=== PATIENT | female | born 2000 | race American Indian/Alaskan Native ===

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

== ENCOUNTER 2020-07-04 23:57 | Inpatient (IN) | payer MEDICAID ==
[2020-07-05] MEDS ORDERED: MINERAL OIL 30 ML ORAL LIQD PO PRN (00:55)
[2020-07-05] MEDS ORDERED: LIDOCAINE (2%) 20 MG/1 ML VIAL 20 ML MDV INFILTRATI ONE ×2 (00:55→07:23)
[2020-07-05] MEDS ORDERED: ePHEDrine SULFATE 50 MG/1 ML INJ IV PRN ×2 (00:55→22:25)
[2020-07-05] MEDS ORDERED: TERBUTALINE 1 MG/1 ML INJ SUB-Q PRN (00:55)
[2020-07-05] MEDS ORDERED: OXYTOCIN DRIP 30 UNITS/500 ML BAG IV SCH ×2 (01:00)
[2020-07-05] MEDS ORDERED: LACTATED RINGERS 1,000 ML IV SCH (01:00)
[2020-07-05 02:01] LABS: Hematocrit 31.1 % (30.3-42.9); Hemoglobin 10.4 gm/dl (10.1-14.3); Mean Corpuscular HGB Conc 34 % (30-34); Mean Corpuscular Volume 90 fl (79-97); Platelet Count 163 K/mm3 (140-440); Red Blood Count 3.45 M/mm3 (3.65-5.03); Red Cell Distribution Width 14.2 % (13.2-15.2)
[2020-07-05] MEDS: miSOPROStol 25 MCG TAB PO SCH ×3 (04:41→09:17)
[2020-07-05] MEDS ORDERED: LACTATED RINGERS 500 ML IV ONE (06:41)
--- NOTE | 2020-07-05 06:49 | History and Physical Report ---
History of Present Illness Date of admission: 07/04/20 23:57 Chief complaint: leakage of fluid History of present illness: 20yo at 38w5d presents with LOF, gross rupture last pm at 2200. She reports clear fluid. Denies contractions or vaginal bleeding. +FM. No additional complaints. 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 Family/Genetic History: none Social history: no significant social history - Obstetrical History Expected Date of Delivery: 07/14/20 Actual Gestation: 38 Week(s) 5 Day(s) : 2 Medications and Allergies Allergies Allergy/AdvReac Type Severity Reaction Status Date / Time No Known Allergies Allergy Verified 07/19/18 23:32 Home Medications Medication Instructions Recorded Confirmed Last Taken Type Acetaminophen/Codeine [Tylenol 1 tab PO Q6H PRN 3 Days #12 tab 07/20/18 Unknown Rx /Codeine # 3 tab] Cyclobenzaprine [Flexeril] 10 mg PO Q8H PRN #15 tablet 07/20/18 Unknown Rx Ibuprofen [Motrin] 600 mg PO Q8H PRN #20 tablet 07/20/18 Unknown Rx Active Meds: Active Medications Butorphanol Tartrate (Butorphanol 2 Mg/1 Ml Inj) 1 mg IV Q2H PRN PRN Reason: Labor Pain Ephedrine Sulfate (Ephedrine Sulfate 50 Mg/1 Ml Inj) 10 mg IV Q2M PRN PRN Reason: Hypotension Oxytocin/Sodium Chloride (Pitocin/Ns 30 Unit/500ml) 30 units in 500 mls @ 2 mls/hr IV TITR MARCOS; Protocol Oxytocin/Sodium Chloride (Pitocin/Ns 30 Unit/500ml) 30 units in 500 mls @ 40 mls/hr IV TITR MARCOS; Protocol Lactated Ringer's (Lactated Ringers) 500 mls @ 999 mls/hr IV BOLUS ONE Stop: 07/05/20 07:11 Mineral Oil (Mineral Oil 30 Ml Oral Liqd) 30 ml PO QHS PRN PRN Reason: Constipation Misoprostol (Misoprostol 25 Mcg Tab) 25 mcg PO Q2HR MARCOS Last Admin: 07/05/20 06:41 Dose: 25 mcg Documented by: Terbutaline Sulfate (Terbutaline 1 Mg/1 Ml Inj) 0.25 mg SUB-Q ONCE PRN PRN Reason: Hyperstimulation/Hypertonicity - Vital Signs Vital signs: Vital Signs Temp Pulse Resp BP 98.6 F 82 18 122/75 07/05/20 00:00 07/05/20 00:00 07/05/20 00:00 07/05/20 00:00 Temp Pulse Resp BP Pulse Ox 98.1 F 70 16 90/53 99 07/05/20 03:07 07/05/20 06:36 07/05/20 03:07 07/05/20 06:09 07/05/20 06:36 - Physical Exam Cardiovascular: Regular rate Lungs: Positive: Clear to auscultation Abdomen: Positive: normal appearance Genitourinary (Female): Positive: normal external genitalia Uterus: Positive: normal size Extremities: Positive: normal - Obstetrical FHR: category 1 Uterine Contraction Monitor Mode: External Cervical Dilatation: 0.5 Uterine Contraction Pattern: Absent Results Result Diagrams: 07/05/20 01:35 Abnormal lab results 07/05/20 Range/Units 01:35 RBC 3.45 L (3.65-5.03) M/mm3 All other labs normal. Assessment and Plan Anticipate vaginal delivery - Patient Problems (1) Rupture of membranes with clear amniotic fluid Current Visit: Yes Status: Acute Plan to address problem: SROM without contractions -plan for IOL (2) Encounter for induction of labor Current Visit: Yes Status: Acute Plan to address problem: Miso 25mcg po q 2 PNC: per [facility] -labs reviewed on chart -GBS neg
[2020-07-05] MEDS ORDERED: LACTATED RINGERS 1,000 ML ONE (11:38)
[2020-07-05] MEDS: LACTATED RINGERS 1,000 ML IV SCH ×2 (11:45→19:03)
[2020-07-05] MEDS: miSOPROStol 25 MCG TAB VG PRN ×2 (13:11→17:30)
[2020-07-05] MEDS: BUTORPHANOL 2 MG/1 ML INJ IV PRN ×2 (13:27→16:43)
[2020-07-05] MEDS ORDERED: NALOXONE 2 MG/2 ML INJ IV PRN (22:25)
--- NOTE | 2020-07-05 22:25 | Progress Note ---
Labor Epidural - Labor Epidural Start Time: 22:06 Stop Time: 22:10 Performed by:: BELLA FLETCHER Procedure: Patient is requesting a laboring epidural for laboring pain. Patient IDed, H&P reviewed, all questions and concerns were answered, and consent was signed. Timeout was performed at bedside. Patient in sitting position. Sterile prep and drape was performed. [3] ml of 1% lidocaine skin wheal at L[3]- L [4]. 18- gauge Tuohy epidural needle was advanced to loss of resistance with saline technique 7 cm. Negative CSF negative blood. Epidural catheter advanced to [12] centimeters. [NEGATIVE] Aspiration [NEGATIVE] test dose. Sterile dressing applied. Patient tolerated procedure.
--- NOTE | 2020-07-05 22:25 | Anesthesia Consultation ---
Anesthesia Consult and Med Hx Date of service: 07/05/20 - Airway Anesthetic Teeth Evaluation: Good ROM Head & Neck: Adequate Mental/Hyoid Distance: Adequate Mallampati Class: Class II Intubation Access Assessment: Good - Pulmonary Exam CTA: Yes - Cardiac Exam Cardiac Exam: RRR - Pre-Operative Health Status ASA Pre-Surgery Classification: ASA2 Proposed Anesthetic Plan: Epidural - Pulmonary Hx Smoking: No Hx Asthma: No Hx Respiratory Symptoms: No SOB: No COPD: No Home Oxygen Therapy: No Hx Pneumonia: No Hx Sleep Apnea: No - Cardiovascular System Hx Hypertension: No Hx Coronary Artery Disease: No Hx Heart Attack/AMI: No Hx Angina: No Hx Percutaneous Transluminal Coronary Angioplasty (PTCA): No Hx Cardia Arrhythmia: No Hx Pacemaker: No Hx Internal Defibrillator: No Hx Valvular Heart Disease: No Hx Heart Murmur: No Hx Peripheral Vascular Disease: No - Central Nervous System Hx Neuromuscular Disorder: No Hx Seizures: No CVA: No Hx Back Pain: Yes Hx Psychiatric Problems: No - Gastrointestinal Hx Ulcer: No Hx Gastroesophageal Reflux Disease: Yes - Endocrine Hx Renal Disease: No Hx End Stage Renal Disease: No Hx Cirrhosis: No Hx Liver Disease: No Hx Insulin Dependent Diabetes: No Hx Non-Insulin Dependent Diabetes: No Hx Thyroid Disease: No Hx Hypothyroidism: No Hx Hyperthyroidism: No - Hematic Hx Anemia: No Hx Sickle Cell Disease: No - Other Systems Hx Alcohol Use: No Hx Substance Use: No Hx Cancer: No Hx Obesity: No
[2020-07-05] MEDS: fentaNYL-BUPIV 2 MCG/ML-0.125% 200 MCG/100 ML BAG EPIDURAL SCH (23:18)
[2020-07-06] MEDS: fentaNYL-BUPIV 2 MCG/ML-0.125% 200 MCG/100 ML BAG EPIDURAL SCH (07:04)
[2020-07-06] MEDS ORDERED: AMPICILLIN/NS 2 GM/100 ML 2 GM/100 ML BAG IV ONE (07:41)
[2020-07-06] MEDS ORDERED: OXYTOCIN 10 UNIT/1 ML INJ ONE (10:41)
[2020-07-06] MEDS ORDERED: METHYLERGONOVINE MALEATE 0.2 MG/ML VIAL IM ONE (10:41)
--- NOTE | 2020-07-06 14:32 | Procedure Note ---
OB Delivery Note - Delivery Date of Delivery: 07/06/20 Surgeon: STEF DRISCOLL Estimated blood loss: 100cc - Vaginal Delivery presentation: vertex Delivery position: OA Delivery augmentation: pitocin Delivery monitor: external FHT, external uterine Route of delivery: Delivery placenta: spontaneous Delivery cord: 3 umbilical vessels Episiotomy: none Delivery laceration: none Anesthesia: epidural Delivery comments: The patient progressed to complete complete +1 and began pushing. After delivery of the head there was slight delay in delivery of the anterior shoulder which was finally delivered with maternal effort. The was a liveborn female infant with Apgars of 8 and 9 weight 2.7 kg. The was immediately bulb suction. The cord was clamped and cut and the infant was placed on the warmer. The placenta delivered spontaneously intact with a three-vessel cord. No lacerations were noted. Estimated blood loss 100 mL. - Infant A at 1 minute: 8 at 5 minutes: 9 Infant Gender: Female (Weight 2.7 kg)
[2020-07-06] MEDS ORDERED: PROMETHAZINE 25 MG RECT SUPP PR PRN (14:35)
[2020-07-06] MEDS ORDERED: ONDANSETRON 4 MG/2 ML INJ IV PRN (14:35)
[2020-07-06] MEDS ORDERED: PROMETHAZINE 25 MG TAB PO PRN (14:35)
[2020-07-06] MEDS ORDERED: WITCH HAZEL/ GLYCERIN PAD TP PRN (14:35)
[2020-07-06] MEDS ORDERED: LANOLIN/ZINC/DIMETHICONE (LANSINOH) 7 GM TP PRN (14:35)
[2020-07-06] MEDS ORDERED: MAGNESIUM HYDROXIDE (MOM) ORAL LIQD UDC PO PRN (14:35)
[2020-07-06] MEDS ORDERED: diphenhydrAMINE 25 MG CAP PO PRN (14:35)
[2020-07-06] MEDS ORDERED: HYDROcodone/ACETAMINOPHEN 5-325 MG TAB PO PRN (14:36)
[2020-07-06] MEDS: IBUPROFEN 600 MG TAB PO SCH (16:58)
[2020-07-07] MEDS: IBUPROFEN 600 MG TAB PO SCH ×3 (00:36→17:46)
[2020-07-07 02:49] LABS: Hematocrit 29.9 % (30.3-42.9); Hemoglobin 9.9 gm/dl (10.1-14.3)
--- NOTE | 2020-07-07 11:00 | Progress Note ---
Assessment and Plan - Patient Problems (1) Encounter for induction of labor Current Visit: Yes Status: Acute Plan to address problem: patient doing well discharge home Subjective - Subjective Date of service: 07/07/20 Interval history: Patient without complaints. Patient reports: appetite normal, voiding normally, pain well controlled : doing well Objective - Vital Signs Latest vital signs: Vital Signs Temp Pulse Resp BP BP Pulse Ox 07/07/20 08:36 98.0 F 68 18 106/68 99 07/07/20 00:40 98.3 F 69 18 95/53 98 07/06/20 20:50 98.3 F 77 18 104/64 97 07/06/20 16:58 16 07/06/20 16:27 98.1 F 87 18 106/70 100 07/06/20 13:10 97.8 F 63 18 105/71 100 07/06/20 12:52 82 112/70 07/06/20 12:46 79 81 L 07/06/20 12:41 75 98 07/06/20 12:40 68 114/72 93 07/06/20 12:36 69 99 07/06/20 12:31 74 99 07/06/20 12:26 62 98 07/06/20 12:25 69 113/69 94 07/06/20 12:21 68 100 07/06/20 12:16 65 98 07/06/20 12:12 81 88 07/06/20 12:11 65 110/64 98 07/06/20 12:06 76 98 07/06/20 11:50 71 100 07/06/20 11:45 66 94 07/06/20 11:43 54 L 93 07/06/20 11:40 64 123/69 100 07/06/20 11:37 77 93 07/06/20 11:35 66 100 07/06/20 11:31 81 86 07/06/20 11:30 75 99 07/06/20 11:25 69 111/61 100 07/06/20 11:23 97.9 F 72 90 07/06/20 11:20 69 96 07/06/20 11:15 74 96 07/06/20 11:12 73 90 07/06/20 11:10 81 111/64 96 07/06/20 11:06 79 86 07/06/20 11:05 80 98 07/06/20 11:02 64 117/63 07/06/20 11:00 76 100 Intake and Output 07/06/20 07/07/20 07/07/20 22:59 06:59 14:59 Intake Total 1320 360 120 Balance 1320 360 120 Intake: Oral 720 360 120 Intake, Free Water 600 Other: Total, Intake Amount 240 120 120 # Voids Void 3 1 1 - Labs Labs: Abnormal lab results 07/07/20 Range/Units 02:10 Hgb 9.9 L (10.1-14.3) gm/dl Hct 29.9 L (30.3-42.9) %
--- NOTE | 2020-07-07 11:02 | Discharge Summary ---
Providers - Providers Date of Admission: 07/05/20 00:55 Date of discharge: 07/07/20 Attending physician: SOLITARIO LOPEZ MD Primary care physician: SOLITARIO LOPEZ MD Hospitalization Reason for admission: induction of labor, rupture of membranes Delivery: Discharge diagnosis: IUP at term delivered Hospital course: Patient admitted with srom. had a . uncomplicated Condition at discharge: Good Disposition: DC-01 TO HOME OR SELFCARE - Discharge Diagnoses (1) Encounter for induction of labor Status: Acute Plan - Discharge Medications Prescriptions: Ibuprofen [Motrin] 800 mg PO Q8HR PRN #30 tablet PRN Reason: Pain , Severe (7-10) HYDROcodone/APAP 5-325 [[place] 5/325] 1 each PO Q6HR PRN #15 tablet PRN Reason: Pain - Provider Discharge Summary Activity: no sex for 6 weeks, no heavy lifting 4 weeks, no strenuous exercise Diet: routine Instructions: routine Additional instructions: [] Smoking cessation referral if applicable(refer to patient education folder for contact #) [] Refer to [facility] Booklet Call your doctor immediately for: * Fever > 100.5 * Heavy vaginal bleeding ( >1 pad per hour) * Severe persistent headache * Shortness of breath * Reddened, hot, painful area to leg or breast * schedule visit in 4 weeks - Follow up plan
--- NOTE | 2020-07-07 12:14 | Post Anesthesia Evaluation ---
- Post Anesthesia Evaluation Patient Participated: Yes Airway Patent: Yes Stable Respiratory Function: Yes Nausea/Vomiting: No Temp > 96.8F: Yes Pain Manageable: Yes Adequeate Hydration: Yes Anesthesia Complications: No Block Receding Appropriately: Yes Patient on Ventilator: No
[2020-07-07 18:01] VITALS: BP 109/67
== END 2020-07-07 18:03 | disposition home or self-care (01) | DRG 775 ==
LOC: UNDOADMIN 23:57 → APU 23:57 → OB 07-05 02:03 → LD 07-05 02:59 → OB 07-05 02:59
PROVIDERS: ADMIT Obstetrics & Gynecology; ATTEND Obstetrics & Gynecology
PROC: 3E0R3BZ Introduction of Anesthetic Agent into Spinal Canal, Percutaneous Approach (ICD-10-PCS; 2020-07-05)
PROC: 00HU33Z Insertion of Infusion Device into Spinal Canal, Percutaneous Approach (ICD-10-PCS; 2020-07-05)
PROC: 3E0DXGC Introduction of Other Therapeutic Substance into Mouth and Pharynx, External Approach (ICD-10-PCS; principal; 2020-07-06)
PROC: 10E0XZZ Delivery of Products of Conception, External Approach (ICD-10-PCS; 2020-07-06)
DX: O80 Encounter for full-term uncomplicated delivery (principal); Z37.0 Single live birth; Z3A.38 38 weeks gestation of pregnancy; Z20.822 Contact with and (suspected) exposure to COVID-19
CPT/HCPCS: 36415; 85014; 85018; 85027; 86592; 86850; 86900; 86901; G0378; J0290; J0595; J2590; J7120; U0003